=== PATIENT | female | born 1970 | race Caucasian/White ===

== ENCOUNTER 2025-07-16 13:49 | Outpatient (CLI) | payer OTHER | END 2025-07-16 13:50 | disposition home or self-care (01) | LOC: SCSBT 13:49 | PROVIDERS: ATTEND Family Medicine | DX: Z13.820 Encounter for screening for osteoporosis (principal); M85.851 Other specified disorders of bone density and structure, right thigh | CPT/HCPCS: 77080 ==

== ENCOUNTER 2025-08-05 09:29 | Outpatient (CLI) | payer OTHER ==
[2025-08-05 11:25] LABS: Estimated GFR - POC 107.0
== END 2025-08-05 09:30 | disposition home or self-care (01) ==
LOC: SCSMRI 09:29
PROVIDERS: ATTEND Family Medicine
DX: M79.89 Other specified soft tissue disorders (principal); M25.562 Pain in left knee; S72.435A Nondisplaced fracture of medial condyle of left femur, initial encounter for closed fracture; S72.8X2A Other fracture of left femur, initial encounter for closed fracture; S80.02XA Contusion of left knee, initial encounter; M89.9 Disorder of bone, unspecified
CPT/HCPCS: 36415; 82565